=== PATIENT | male | born 1935 | race Caucasian/White ===

== ENCOUNTER 2017-07-22 23:40 | Inpatient (IN) ==
[2017-07-23] MEDS ORDERED: ONDANSETRON 4 MG/2 ML VIAL IV STA (00:08)
[2017-07-23] MEDS ORDERED: SODIUM CHLORIDE 0.9% 1,000 ML IV STA (00:08)
[2017-07-23] MEDS ORDERED: ACETAMINOPHEN 500 MG TABLET PO STA (00:08)
[2017-07-23] MEDS ORDERED: methylPREDNISolone SOD SUC 125 MG/2 ML VIAL IV STA (00:08)
[2017-07-23] MEDS ORDERED: cefTRIAXone 1,000 MG in SODIUM CHLORIDE 0.9% 100 ML IV STA (00:08)
[2017-07-23] MEDS ORDERED: ALBUTEROL/IPRATROPIUM 3 ML NEB RESP TX STA (00:08)
[2017-07-23] MEDS ORDERED: ONDANSETRON 4 MG/2 ML VIAL ONE (00:30)
[2017-07-23] MEDS ORDERED: cefTRIAXone 1,000 MG VIAL ONE (00:30)
[2017-07-23] MEDS ORDERED: ACETAMINOPHEN 500 MG TABLET ONE (00:31)
[2017-07-23] MEDS ORDERED: methylPREDNISolone SOD SUC 125 MG/2 ML VIAL ONE (00:31)
[2017-07-23] MEDS ORDERED: ACETAMINOPHEN 325 MG SUPP RECTAL ONE (00:52)
[2017-07-23 10:02] LABS: Basophils % 0.1 % (0.0-0.8); Hematocrit 31.1 VOL% (42.0-52.0); Hemoglobin 10.5 GM/DL (14.0-18.0); Immature Granulocytes % 0.3 %; Immature Granulocytes Absolute 0.02 #; Lymphocytes # 0.5 10*3/uL (1.4-4.0); Lymphocytes % 6.8 % (21.2-54.2); Mean Corpuscular HGB Conc 33.8 GM/DL (32-36); Mean Corpuscular Hemoglobin 30 PG (27-34); Mean Corpuscular Volume 89.4 FL (87-102); Monocytes # 0.2 10*3/uL (0.11-0.8); Monocytes % 2.3 % (1.7-12.7); Neutrophils # 6.3 10*3/uL (1.4-7.4); Neutrophils % 90.5 % (38.7-73.9); Platelet Count 67 T/CUMM (130-400); Red Blood Count 3.48 MC/CUMM (3.8-5.5); Red Cell Distribution Width 14.6 % (9.3-17.3); White Blood Count 6.9 T/CUMM (4-12)
[2017-07-23] MEDS ORDERED: ONDANSETRON 4 MG/2 ML VIAL IV PRN (11:41)
[2017-07-23] MEDS ORDERED: ALBUTEROL/IPRATROPIUM 3 ML NEB RESP TX PRN (11:41)
[2017-07-23] MEDS ORDERED: SODIUM CHLORIDE 0.9% 1,000 ML IV SCH (11:41)
[2017-07-23] MEDS ORDERED: ACETAMINOPHEN 325 MG TABLET PO PRN (11:41)
[2017-07-23] MEDS ORDERED: MORPHINE 2 MG/1 ML SYRINGE IV PRN (11:41)
[2017-07-23 12:02] LABS: Bilirubin,Total 0.5 MG/DL (0.2-1.0); Calcium 6.3 MG/DL (8.5-10.1); Total Protein 4.9 G/DL (6.4-8.3)
[2017-07-23 12:03] LABS: Albumin 2.1 G/DL (3.4-5.0); Potassium 2.6 MMOL/L (3.5-5.1)
[2017-07-23] MEDS: cefTRIAXone 1,000 MG in SYRINGE 1 EACH IV SCH (12:36)
[2017-07-23 13:40] LABS: Basophils % 0.1 % (0.0-0.8); Hematocrit 37.1 VOL% (42.0-52.0); Hemoglobin 12.3 GM/DL (14.0-18.0); Immature Granulocytes % 0.3 %; Immature Granulocytes Absolute 0.05 #; Lymphocytes # 1.1 10*3/uL (1.4-4.0); Lymphocytes % 6.3 % (21.2-54.2); Mean Corpuscular HGB Conc 33.2 GM/DL (32-36); Mean Corpuscular Hemoglobin 30 PG (27-34); Mean Corpuscular Volume 90.9 FL (87-102); Mean Platelet Volume 10.3 FL (9.6-12.0); Monocytes # 0.2 10*3/uL (0.11-0.8); Neutrophils # 15.5 10*3/uL (1.4-7.4); Neutrophils % 92.3 % (38.7-73.9); Platelet Count 232 T/CUMM (130-400); Red Blood Count 4.08 MC/CUMM (3.8-5.5); Red Cell Distribution Width 14.7 % (9.3-17.3); White Blood Count 16.8 T/CUMM (4-12)
[2017-07-23] MEDS: PANTOPRAZOLE 40 MG TABLET PO SCH (13:52)
[2017-07-23 14:08] LABS: Calcium 8.8 MG/DL (8.5-10.1); Osmolality,Calculated 304.4 MOS/KG (273-304); Potassium 3.8 MMOL/L (3.5-5.1)
[2017-07-23 15:39] LABS: Band Neutrophils 1 % (0-10); Lymphocytes 3 % (20-55); Segmented Neutrophils 96 % (50-85); Total Cells Counted 100
[2017-07-23 15:40] LABS: Platelet Estimate Normal
[2017-07-23] MEDS: SODIUM CHLORIDE 0.45% 1,000 ML IV SCH (15:44)
[2017-07-23] MEDS: CLINDAMYCIN INJ 300 MG in PREMIX 1 EACH IV SCH (15:53)
[2017-07-23] MEDS: methylPREDNISolone SOD SUC 40 MG/1 ML VIAL IV SCH (15:54)
[2017-07-23] MEDS: risperiDONE 0.25 MG TABLET PO SCH (20:55)
[2017-07-24] MEDS: CLINDAMYCIN INJ 300 MG in PREMIX 1 EACH IV SCH ×2 (00:17→10:23)
[2017-07-24] MEDS: methylPREDNISolone SOD SUC 40 MG/1 ML VIAL IV SCH (03:26)
[2017-07-24] MEDS: SODIUM CHLORIDE 0.45% 1,000 ML IV SCH ×2 (03:29→10:01)
[2017-07-24 07:23] LABS: Basophils % 0.1 % (0.0-0.8); Hematocrit 32.1 VOL% (42.0-52.0); Hemoglobin 10.7 GM/DL (14.0-18.0); Immature Granulocytes % 0.4 %; Immature Granulocytes Absolute 0.05 #; Lymphocytes # 1.2 10*3/uL (1.4-4.0); Lymphocytes % 9.1 % (21.2-54.2); Mean Corpuscular HGB Conc 33.3 GM/DL (32-36); Mean Corpuscular Hemoglobin 30 PG (27-34); Mean Corpuscular Volume 89.7 FL (87-102); Mean Platelet Volume 10.9 FL (9.6-12.0); Monocytes # 0.3 10*3/uL (0.11-0.8); Monocytes % 2.1 % (1.7-12.7); Neutrophils # 11.5 10*3/uL (1.4-7.4); Neutrophils % 88.3 % (38.7-73.9); Platelet Count 195 T/CUMM (130-400); Red Blood Count 3.58 MC/CUMM (3.8-5.5); Red Cell Distribution Width 14.7 % (9.3-17.3)
[2017-07-24 07:54] LABS: Alanine Aminotransferase 28 U/L (16-61); Albumin 2.4 G/DL (3.4-5.0); Alkaline Phosphatase 66 U/L (45-117); Aspartate Amino Transferase 22 U/L (0-37); Bilirubin,Total < 0.39 MG/DL (0.2-1.0); Blood Urea Nitrogen 36 MG/DL (7-18); Calcium 8.5 MG/DL (8.5-10.1); Glucose 136 MG/DL (74-106); Osmolality,Calculated 295.8 MOS/KG (273-304); Potassium 3.6 MMOL/L (3.5-5.1); Sodium 144 MMOL/L (136-145); Total Protein 6.1 G/DL (6.4-8.3)
[2017-07-24 08:21] LABS: Band Neutrophils 5 % (0-10); Lymphocytes 6 % (20-55); Segmented Neutrophils 87 % (50-85); Total Cells Counted 100
[2017-07-24 08:22] LABS: Microcytosis 1+; Ovalocytes Slight
[2017-07-24 08:23] LABS: Platelet Estimate Adequate
[2017-07-24] MEDS ORDERED: ASPIRIN EC 81 MG TABLET PO SCH (09:00)
[2017-07-24] MEDS ORDERED: TAMSULOSIN 0.4 MG CAPSULE PO SCH (09:00)
[2017-07-24] MEDS ORDERED: amLODIPine 10 MG TABLET PO SCH (09:00)
[2017-07-24] MEDS: risperiDONE 0.25 MG TABLET PO SCH (10:24)
[2017-07-24] MEDS: PANTOPRAZOLE 40 MG TABLET PO SCH (10:24)
[2017-07-24 12:50] VITALS: BP 116/64
[2017-07-24] MEDS: cefTRIAXone 1,000 MG in SYRINGE 1 EACH IV SCH (13:14)
== END 2017-07-24 13:54 | disposition hospice, home (50) | DRG 871 ==
LOC: N.ED 23:40 → N.5E 23:40 → OBSVTOIN 07-23 03:23 → SUATTDRO 07-23 03:23 → N.ED 07-23 03:23
PROVIDERS: ADMIT Internal Medicine; ATTEND Internal Medicine